=== PATIENT | female | born 1940 | race Caucasian/White ===

== ENCOUNTER 2017-05-11 14:10 | Inpatient (IN) | payer OTHER ==
[~2017-05-11] VITALS: Ht 172.7 cm; Wt 104.3 kg
[~2017-05-11 14:10] MED LIST: Aspirin Chewable PO; CITALOPRAM HBR10 M1 PO; DICLOFENAC SODI50 MG PO; HYDROCHLOROTH12.5 M1 PO; METOPROLOL; METOPROLOL TART50 MG PO; NEURONTIN400 M1 PO; Neurontin PO; Nitrostat,NitroQuick SL; SIMVASTATIN20 MG PO; SIMVASTATIN40 MG PO; TOPROL XL50 MG PO; Toprol XL PO; VOLTAREN50 MG PO; Voltaren PO; Zocor PO
[2017-05-11 15:41] LABS: HEMATOCRIT 44.4 % (36.0-46.0); HEMOGLOBIN 14.7 G/DL (11.9-15.5); MCH 31.8 PG (29.0-34.0); MCHC 33.1 G/DL (30.0-36.0); MCV 96.1 FL (83-99); PLATELET COUNT 120 K/uL (156-360); RBC DIS.WIDTH-CV 14.5 % (11.8-14.6); RBC DIS.WIDTH-SD 51.9 % (39-53); RED BLOOD COUNT 4.62 M/uL (3.80-5.20)
[2017-05-11 15:49] LABS: ALBUMIN 3.9 g/dL (3.2-4.8); CHLORIDE 104 mEq/L (99-109); POTASSIUM 4.1 mEq/L (3.7-5.4); SODIUM 138 mEq/L (136-147)
[2017-05-11 15:50] LABS: MAGNESIUM 1.6 mg/dL (1.3-2.7)
[2017-05-11 15:51] LABS: PTT 36.5 SEC (25-37)
[2017-05-11 15:52] LABS: GLUCOSE 112 mg/dL (70-99); TOTAL PROTEIN 7.2 g/dL (6.4-8.3)
[2017-05-11 15:54] LABS: TOTAL BILIRUBIN 0.8 mg/dL (0.0-1.0)
[2017-05-11 15:55] LABS: ALKALINE PHOSPHATASE 75 IU/L (3-129); CREATININE 1.2 mg/dL (0.6-1.3); GFR ESTIMATE (CALCULATED) 46 mL/min/
[2017-05-11 15:57] LABS: AST (GOT) 32 IU/L (2-34); UREA NITROGEN (BUN) 29 mg/dL (9-23)
[2017-05-11 15:58] LABS: ALT (GPT) 22 IU/L (3-49)
[2017-05-11 16:02] LABS: TROP-I INTERPRETATION NEGATIVE; TROPONIN-I 0.03 ng/mL (0.0-0.30)
[2017-05-11 16:21] LABS: INTER. NORMALIZED RATIO 1.2
[2017-05-11 16:23] LABS: ABS NEUTROPHIL COUNT 4.7; ANISOCYTOSIS 1+; BAND NEUTROPHILS 15.2 % (0-8.0); BASOPHILS 0.9 %; EOSINOPHIL ABS CT 0.1; EOSINOPHILS 0.9 % (0-5.0); LYMPHOCYTES 11.6 % (15.0-45.0); MACROCYTES 1+; MICROCYTOSIS 1+; SEG.NEUTROPHILS 63.4 % (46.0-76.0)
[2017-05-11] MEDS ORDERED: DICLOFENAC SODI50 MG PO (16:59)
[2017-05-11] MEDS ORDERED: LASIX20 MG PO (17:00)
[2017-05-11] MEDS ORDERED: ADULT ASPIRIN R81 MG PO (17:00)
[2017-05-11] MEDS ORDERED: BUSPAR5 MG PO (17:01)
[2017-05-11] MEDS ORDERED: IMDUR30 MG PO (17:01)
[2017-05-11] MEDS ORDERED: LOSARTAN POTASS25 MG PO (17:01)
[2017-05-11 21:31] VITALS: BP 176/97
[2017-05-12] VITALS (7 sets, daily range): BP systolic 118–161; BP diastolic 74–91
[2017-05-12 06:39] LABS: HEMATOCRIT 43.9 % (36.0-46.0); HEMOGLOBIN 14.5 G/DL (11.9-15.5); MCH 31.6 PG (29.0-34.0); MCV 95.6 FL (83-99); PLATELET COUNT 126 K/uL (156-360); RBC DIS.WIDTH-CV 14.6 % (11.8-14.6); RBC DIS.WIDTH-SD 51.2 % (39-53); RED BLOOD COUNT 4.59 M/uL (3.80-5.20); WHITE BLOOD COUNT 4.2 K/uL (4.1-10.2)
[2017-05-12 07:01] LABS: CHLORIDE 104 MEQ/L (99-109); CREATININE 0.9 MG/DL (0.6-1.3); GFR ESTIMATE (CALCULATED) > 59 mL/min/; POTASSIUM 4.8 MEQ/L (3.7-5.4); SODIUM 139 MEQ/L (136-147); UREA NITROGEN (BUN) 23 mg/dL (9-23)
[2017-05-12 07:04] LABS: GLUCOSE 172 mg/dL (70-99)
[2017-05-13 00:08] VITALS: BP 124/64
[2017-05-13 03:57] VITALS: BP 110/76
[2017-05-13 07:36] VITALS: BP 116/63
[2017-05-13 11:09] VITALS: BP 99/67
[2017-05-13 15:08] VITALS: BP 131/77
[2017-05-13 19:36] VITALS: BP 136/78
[2017-05-14 00:01] VITALS: BP 120/71
[2017-05-14 04:04] VITALS: BP 116/74
[2017-05-14 07:58] VITALS: BP 134/78
[2017-05-14 16:00] VITALS: BP 128/66
[2017-05-14 23:49] VITALS: BP 110/73
[2017-05-15] MEDS ORDERED: OSELTAMIVIR PHO30 MG PO (06:56)
[2017-05-15] MEDS ORDERED: DUONEB 2.5-0.5 M3 ML AEROSOL (06:57)
[2017-05-15] MEDS ORDERED: PREDNISONE20 MG PO (06:57)
[2017-05-15 08:47] VITALS: BP 129/91
== END 2017-05-15 16:30 | disposition home or self-care (01) | DRG 193 ==
LOC: EME 14:10 → 5SOUTH 18:44 → EDOF 18:44 → ENRESERV 18:51 → 5SOUTH 21:13
PROVIDERS: Emergency Medicine; Hospitalist
DX: J10.1 Influenza due to other identified influenza virus with other respiratory manifestations (principal); J96.01 Acute respiratory failure with hypoxia; J44.1 Chronic obstructive pulmonary disease with (acute) exacerbation; I25.10 Atherosclerotic heart disease of native coronary artery without angina pectoris; I25.5 Ischemic cardiomyopathy; I10 Essential (primary) hypertension; E78.5 Hyperlipidemia, unspecified; I25.2 Old myocardial infarction; M19.90 Unspecified osteoarthritis, unspecified site; Z87.891 Personal history of nicotine dependence; Z90.710 Acquired absence of both cervix and uterus; Z82.49 Family history of ischemic heart disease and other diseases of the circulatory system; Z82.3 Family history of stroke
CPT/HCPCS: 71045; 80048; 80053; 81003; 83605; 83735; 83880; 84484; 85025; 85027; 85610; 85730; 87040; 87502; 93005; 94640; 94640 76; 94799; 99281; 99285; J1644; J2930; J7030; J7512

== ENCOUNTER 2017-06-13 14:07 | Emergency (ER) | payer OTHER ==
[~2017-06-13] VITALS: Ht 172.7 cm; Wt 104.9 kg
[~2017-06-13 14:07] MED LIST changes: +ADULT ASPIRIN R81 MG PO; +BUSPAR5 MG PO; +DUONEB 2.5-0.5 M3 ML AEROSOL; +IMDUR30 MG PO; +LASIX20 MG PO; +LOSARTAN POTASS25 MG PO; +OSELTAMIVIR PHO30 MG PO; +PREDNISONE20 MG PO
[2017-06-13 15:48] LABS: APPEARANCE SL.HAZY ((CLEAR)); BILIRUBIN NEGATIVE; BLOOD SMALL; COLOR YELLOW ((YELLOW)); GLUCOSE (STRIP) NEGATIVE; KETONES NEGATIVE; LEUKOCYTES SMALL; NITRITE NEGATIVE; PROTEIN (STRIP) 30; SPECIFIC GRAVITY 1.026 (1.000-1.030); UROBILINOGEN 0.2 MG/DL (0.2-1.0)
[2017-06-13 15:49] LABS: HEMATOCRIT 42.4 % (36.0-46.0); HEMOGLOBIN 14.3 G/DL (11.9-15.5); MCH 32.1 PG (29.0-34.0); MCHC 33.7 G/DL (30.0-36.0); MCV 95.1 FL (83-99); PLATELET COUNT 221 K/uL (156-360); RBC DIS.WIDTH-CV 14.6 % (11.8-14.6); RBC DIS.WIDTH-SD 50.5 % (39-53); RED BLOOD COUNT 4.46 M/uL (3.80-5.20); WHITE BLOOD COUNT 7.1 K/uL (4.1-10.2)
[2017-06-13 15:56] LABS: BACTERIA NONE SEEN /HPF; CALCIUM OXALATE CRYSTALS 2+ /HPF; EPITHELIAL CELLS 2+ /HPF; HYALINE CASTS 0-5 /LPF; MUCUS TRACE /LPF; UCUL ADDED? NO; WHITE BLOOD CELLS 0-5 /HPF (0-5)
[2017-06-13 15:57] LABS: CHLORIDE 106 mEq/L (99-109); POTASSIUM 4.1 mEq/L (3.7-5.4); SODIUM 139 mEq/L (136-147)
[2017-06-13 15:59] LABS: GLUCOSE 102 mg/dL (70-99)
[2017-06-13 16:02] LABS: CREATININE 0.9 mg/dL (0.6-1.3); GFR ESTIMATE (CALCULATED) > 59 mL/min/
[2017-06-13 16:03] LABS: UREA NITROGEN (BUN) 19 mg/dL (9-23)
[2017-06-13 16:43] LABS: SOURCE SWAB
[2017-06-13 19:29] VITALS: BP 132/68
== END 2017-06-13 19:30 | disposition home or self-care (01) ==
LOC: EME 14:07
PROVIDERS: Physician Assistant
DX: N93.9 Abnormal uterine and vaginal bleeding, unspecified (principal); R31.9 Hematuria, unspecified; K57.30 Diverticulosis of large intestine without perforation or abscess without bleeding; I25.10 Atherosclerotic heart disease of native coronary artery without angina pectoris; I25.2 Old myocardial infarction; I10 Essential (primary) hypertension; E78.5 Hyperlipidemia, unspecified; J44.9 Chronic obstructive pulmonary disease, unspecified; Z87.891 Personal history of nicotine dependence; Z90.710 Acquired absence of both cervix and uterus; Z79.82 Long term (current) use of aspirin
CPT/HCPCS: 74177; 80048; 81003; 85027; 87210; 87491; 87591; 99281; 99285

== ENCOUNTER 2017-10-28 22:05 | Inpatient (IN) | payer OTHER ==
[~2017-10-28] VITALS: Ht 172.7 cm; Wt 105.2 kg
[2017-10-29 08:49] VITALS: BP 109/69
[2017-10-29 15:43] VITALS: BP 106/57
[2017-10-29 20:13] VITALS: BP 116/58
[2017-10-29 23:54] VITALS: BP 137/67
[2017-10-30 04:05] VITALS: BP 124/60
[2017-10-30 05:10] LABS: CHLORIDE 109 mEq/L (99-109); POTASSIUM 5.5 mEq/L (3.7-5.4); SODIUM 141 mEq/L (136-147)
[2017-10-30 05:12] LABS: GLUCOSE 155 mg/dL (70-99); HEMATOCRIT 45.2 % (36.0-46.0); HEMOGLOBIN 15.1 G/DL (11.9-15.5); MCV 96.6 FL (83-99)
[2017-10-30 05:16] LABS: CREATININE 0.9 mg/dL (0.6-1.3); GFR ESTIMATE (CALCULATED) > 59 mL/min/
[2017-10-30 05:17] LABS: UREA NITROGEN (BUN) 16 mg/dL (9-23)
[2017-10-30 07:32] VITALS: BP 126/66
[2017-10-30] MEDS ORDERED: ELIQUIS2.5 MG PO (08:10)
[2017-10-30] MEDS ORDERED: OXYCODONE HCL5 MG PO (08:10)
[2017-10-30] MEDS ORDERED: CELECOXIB200 MG PO (08:10)
[2017-10-30 11:55] VITALS: BP 108/59
[2017-10-30 15:36] VITALS: BP 104/70
[2017-10-30 20:10] VITALS: BP 106/55
[2017-10-31 00:05] VITALS: BP 98/51
[2017-10-31 04:24] VITALS: BP 109/57
[2017-10-31 06:56] LABS: HEMATOCRIT 40.4 % (36.0-46.0); MCV 97.3 FL (83-99)
[2017-10-31 07:57] VITALS: BP 96/53
[2017-10-31 12:07] VITALS: BP 100/61
== END 2017-10-31 16:00 | disposition home health service (06) | DRG 470 ==
LOC: ENRESERV 22:05 → 2SOUTH 10-29 07:29 → 3WEST 10-29 14:54 → 2SOUTH 10-29 14:58 → 3WEST 10-31 16:00
PROVIDERS: Orthopaedic Surgery
PROC: 0SRD0J9 Replacement of Left Knee Joint with Synthetic Substitute, Cemented, Open Approach (ICD-10-PCS; principal; 2017-10-29)
DX: M17.12 Unilateral primary osteoarthritis, left knee (principal); E87.5 Hyperkalemia; J44.9 Chronic obstructive pulmonary disease, unspecified; I10 Essential (primary) hypertension; I25.2 Old myocardial infarction; E78.00 Pure hypercholesterolemia, unspecified
CPT/HCPCS: 80048; 84132 91; 85014; 85018; 97530 GO; C1713; J0330; J0690; J1100; J1170; J1885; J2250; J2405; J2795; J3010; J7050; S0020